=== PATIENT | female | born 1945 | race Two or more races ===

== ENCOUNTER 2019-10-29 17:38 | Outpatient (CLI) | payer MEDICARE, OTHER | END 2019-10-29 17:39 | disposition home or self-care (01) | LOC: COV 17:38 | PROVIDERS: ATTEND Family Medicine | DX: R50.9 Fever, unspecified (principal); R05 Cough; R06.02 Shortness of breath; R06.2 Wheezing; M79.10 Myalgia, unspecified site; R53.83 Other fatigue; J02.9 Acute pharyngitis, unspecified | CPT/HCPCS: 81599 ==

== ENCOUNTER 2022-06-15 08:00 | Outpatient (CLI) | payer MEDICARE, OTHER | END 2022-06-15 23:59 | disposition home or self-care (01) | LOC: LAB.S 08:00 | PROVIDERS: ATTEND Nurse Practitioner | DX: R68.83 Chills (without fever) (principal) | CPT/HCPCS: 87086 ==